=== PATIENT | male | born 1995 | race Caucasian/White ===

== ENCOUNTER 2024-02-02 14:00 | Emergency (ER) | payer BC, SELFPAY ==
[2024-02-02 14:01] VITALS: BP 153/78; PULSE 90; RESP 17; TEMP 36.2; O2SAT 100; BMI 24.5
--- NOTE | 2024-02-02 14:03 | EKG12_ITS ---
Test Reason : CP Blood Pressure : / mmHG Vent. Rate : 085 BPM Atrial Rate : 085 BPM P-R Int : 158 ms QRS Dur : 102 ms QT Int : 382 ms P-R-T Axes : 048 073 063 degrees QTc Int : 454 ms Normal sinus rhythm Normal ECG Confirmed by PHILLY CARTER MD ([id number]), digital editor FERMIN PIERCE ([id number]) on 02/03/2024 6:58:45 AM Referred By: Confirmed By:PHILLY CARTER MD
[2024-02-02 14:38] LABS: Absolute Lymphocyte Count 1.89 X10^3/uL (0.83-4.51); Absolute Neutrophil Count 4.9 X10^3/uL (2.0-7.7); Basophil# 0.04 X10^3/uL; Basophil% 0.5 % (0-1); Eosinophil# 0.25 X10^3/uL; Eosinophils% 3.3 % (0-5); Hematocrit 43.8 % (40-54); Hemoglobin 14.5 g/dL (13.0-16.5); Lymphocyte # 1.89 X10^3/ul (0.83-4.51); Lymphocyte % 25.1 % (19-41); Mean Corp Hgb Conc 33.1 g/dL (32-36); Mean Corpuscular Hgb 29.1 pg (27.0-32.0); Mean Corpuscular Volume 87.8 fL (80-94); Mean Platelet Vol. 10.2 fl (6.2-12.0); Monocyte# 0.47 X10^3/uL; Monocyte% 6.2 % (0-10); NRBC Flagged by Analyzer 0 % (0-5); Neutrophil # 4.85 X10^3/uL (2.7-7.7); Neutrophil % 64.5 % (47-70); Platelet Count 226 K/mm3 (150-450); RBC Distribution Width CV 12.6 % (11.6-14.6); RBC Distribution Width SD 40.4 fl (35.1-43.9); Red Blood Count 4.99 M/mm3 (4.6-6.2); White Blood Count 7.5 K/mm3 (4.4-11.0)
[2024-02-02 15:01] VITALS: BP 137/75; PULSE 80; RESP 16; O2SAT 99
[2024-02-02 15:05] LABS: Anion Gap 5 (5-15); BUN 18 mg/dL (7-18); BUN/Creat Ratio 20.2 RATIO (10-20); Calcium,Total 9.3 mg/dL (8.5-10.1); Chloride 106 mmol/L (98-107); Creatinine, Serum 0.89 mg/dL (0.70-1.30); EST Glomerular Filtration Rate 109 mL/min (>60); Est Glom Filt Rate - Afr Amer 132 mL/min (>60); Estimated Creatinine Clearance 132.79 ml/min; Glucose 113 mg/dL (74-106); Potassium 3.7 mmol/L (3.5-5.1); Sodium Level 139 mmol/L (136-145); Troponin-I HS (w/2H Reflex) < 3 pg/mL (3.0-78.0)
--- NOTE | 2024-02-02 15:08 | RAD_ITS ---
STUDY: X-RAY CHEST REASON FOR EXAM: Male, 28 years old. Chest pain TECHNIQUE: Single AP portable view of the chest. COMPARISON: None. FINDINGS: EKG electrodes are seen. The lungs are clear and expanded. There is no demonstrated pleural abnormality. Normal size heart. Normal mediastinum and angela. Normal visualized pulmonary arteries. Normal visualized aortic arch and descending thoracic aorta. Normal visualized thoracic spine. Normal visualized ribs, clavicles, and shoulders. There is no demonstrated abnormality of the visualized soft tissue structures of the upper abdomen. RAD/Chest 1 View (Portable) IMPRESSION: Normal x-ray examination of the chest. Electronically Signed: Graeme Lai MD at 15:29 EDT ,
[2024-02-02] MEDS: Ketorolac 15 MG/ML Vial IV (15:28)
[2024-02-02 16:00] VITALS: BP 121/79; PULSE 74; RESP 14; O2SAT 98
[2024-02-02 16:19] LABS: D-Dimer Quantitative (DVT/PE) < 0.27 FEU/ug/m (0.27-0.49)
--- NOTE | 2024-02-02 16:26 | ED.VIS.CHEST ---
HPI History of Present Illness Chief Complaint: Chest Pain Narrative Narrative: 28-year-old male presenting with chest pain. Left-sided. He has 1 focal spot on the left side of his chest where it hurts. There is a deep inspiration. He is not short of breath. When he walks he does not really have the pain unless he has a deep breath. Laying back makes it worse and sitting forward makes it better although nothing relieves it. He tried Tylenol and ibuprofen at home. He also tried aspirin.He has not had fevers, chills, cough. Patient states that his pain started last evening when he was driving home in the car from work. He does not think he did anything to cause himself an injury. He denies lightheadedness. PE Risk Factors: Negative for Recent Travel/Surgery, Recent Immobilization, Prior DVT or PE, Cancer or OCP + Smoking + >/=35 TAD Risk Factors: Negative for Marfan's Syndrome PFSH PFSH Medical History no medical history Home Medications NK 02/02/24 [History Last Taken Unknown] Allergy/AdvReac Type Severity Reaction Status Date / Time Penicillins Allergy Severe Swelling Verified 02/02/24 14:03 Surgical History no surgical history Social History Smoking Status: Never smoker ROS ROS ED Constitutional Constitutional ED: Denies chills, fever(s) or sweats Eyes Eyes: Denies blurry vision or change in vision ENT ENT ED: Denies ear pain or sore throat Cardiovascular Cardiovascular: Reports as per HPI; Denies palpitations or racing heartbeat Respiratory/Chest Respiratory/Chest: Denies cough, dyspnea or sputum Gastrointestinal Gastrointestinal: Denies abdominal pain, constipation, diarrhea, nausea or vomiting Genitourinary Genitourinary ED: Denies dysuria, hematuria or urinary frequency Musculoskeletal Musculoskeletal: Denies arthralgias, myalgias or neck pain Integumentary Denies abscess, Abrasions or rash Neurologic Neurologic: Denies headache(s), paresthesias or weakness Psychiatric Psychiatric: Denies anxiety, depression, suicidal ideation or suicidal thoughts Endocrine Endocrinology: Denies polydipsia or polyuria EXAM Physical Exam Const Vital Signs: 02/02/24 14:01 02/02/24 14:51 02/02/24 14:51 Temperature 97.1 F L Temperature Source Temporal Pulse Rate 90 Respiratory Rate 17 Respiratory Effort Normal Blood Pressure 153/78 H Blood Pressure Mean 103 Pulse Ox 100 Oxygen Delivery Method Room Air Room Air 02/02/24 15:01 02/02/24 16:00 Temperature Temperature Source Pulse Rate 80 74 Respiratory Rate 16 14 Respiratory Effort Blood Pressure 137/75 H 121/79 H Blood Pressure Mean 95 93 Pulse Ox 99 98 Oxygen Delivery Method Room Air Room Air Positive well nourished General Appearance ED: NAD HEENT Reports moist mucous membranes normocephalic and atraumatic Chest Wall inspection of chest normal and palpation of chest normal Resp normal respiratory effort and clear to auscultation bilaterally Auscultation: Negative for rales, rhonchi or wheezes Cardio regular rate and regular rhythm Neuro oriented x3 and CN's II-XII intact bilaterally Psych mental status grossly normal Skin no rashes or lesions noted Heart Score History: Slightly/Non-Suspicious ECG: Normal Age: </= 45 years Risk Factors: No Risk Factors Troponin: </= Normal Limit Score: 0 MDM MDM MDM Narrative Medical decision making narrative: Patient presenting with chest pain. Patient pain was treated with Toradol. It is not reproducible on examination. He states is worse with deep inspiration. Differential includes but is not limited to ACS, PE, aortic dissection, pneumonia, pneumothorax, muscle strain, costochondritis. CBC was obtained to assess for both, hemoglobin, platelets. BMP to assess renal function, electrolytes. High-sensitivity troponin EKG to assess for ischemia/dysrhythmia. Chest x-ray to rule out pneumonia. D-dimer to assess for PE. CBC, BMP, unremarkable. Sensitivity troponin is less than 3. EKG on my interpretation shows sinus rhythm at 85 bpm without sign of ischemic change or dysrhythmia. D-dimer negative. Chest x-ray on my interpretation shows no acute process. Impression 1. Chest pain Lab Data Attestation: I reviewed the patient's lab results. Labs: Laboratory Results - last 24 hr 02/02/24 02/02/24 14:30 15:29 WBC 7.5 RBC 4.99 Hgb 14.5 Hct 43.8 MCV 87.8 MCH 29.1 MCHC 33.1 RDW Std Deviation 40.4 RDW Coeff of Alexandra 12.6 Plt Count 226 MPV 10.2 Immature Gran % (Auto) 0.400 Neut % (Auto) 64.5 Lymph % (Auto) 25.1 Falls % (Auto) 6.2 Eos % (Auto) 3.3 Baso % (Auto) 0.5 Absolute Neuts (auto) 4.9 Absolute Lymphs (auto) 1.89 Nucleated RBC % 0 D-Dimer Quant (PE/DVT) < 0.27 L Sodium 139 Potassium 3.7 Chloride 106 Carbon Dioxide 28.0 Anion Gap 5 BUN 18 Creatinine 0.89 Estim Creat Clear Calc 132.79 Est GFR (MDRD) Af Amer 132 Est GFR (MDRD) Non-Af 109 BUN/Creatinine Ratio 20.2 H Glucose 113 H Calcium 9.3 Troponin I High Sens < 3 L Radiography Diagnostic Testing: Clinical Impression(s) from Imaging Studies Chest X-Ray 02/02/24 15:08 IMPRESSION: Normal x-ray examination of the chest. Electronically Signed: Graeme Lai MD at 15:29 EDT Reading Location ID and State: [facility] / [place] , Service support , Discharge Plan Triage Chief Complaint: Chest Pain ED Provider: Elkin Ordonez Dx/Rx/DC Orders Prescriptions: No Action NK Primary Care Provider: JD RIOS Referrals: JD RIOS [Other]
[2024-02-02 16:35] LABS: Reflex Troponin-HS? (from REC) Y
[2024-02-02 16:41] VITALS: BP 121/79; PULSE 73; RESP 17; TEMP 36.4; O2SAT 97
== END 2024-02-02 16:56 | disposition home or self-care (01) ==
PROVIDERS: Emergency Provider Student in an Organized Health Care Education/Training Program; Visit Provider Student in an Organized Health Care Education/Training Program
DX: R07.9 Chest pain, unspecified (principal)
CPT/HCPCS: 71045; 80048; 84484; 85025; 85379; 93005; 96374; 99284; A4216